=== PATIENT | female | born 1995 | race Caucasian/White ===

== ENCOUNTER 2018-01-10 23:18 | Emergency (ER) | payer OTHER ==
[~2018-01-10] VITALS: Ht 162.6 cm; Wt 102.0 kg
[2018-01-10 23:29] VITALS: Ht 162.6 cm; Wt 102.0 kg
[2018-01-11 00:38] VITALS: BP 111/61
== END 2018-01-11 00:38 | disposition home or self-care (01) ==
LOC: ED 23:18
DX: T81.4XXA Infection following a procedure, initial encounter (principal)

== ENCOUNTER 2018-04-18 14:32 | Emergency (ER) | payer OTHER ==
[~2018-04-18] VITALS: Ht 162.6 cm; Wt 104.5 kg
[2018-04-18 14:36] VITALS: BP 121/76; Ht 162.6 cm; Wt 104.5 kg
== END 2018-04-18 16:17 | disposition home or self-care (01) ==
LOC: ED 14:32
DX: S92.355A Nondisplaced fracture of fifth metatarsal bone, left foot, initial encounter for closed fracture (principal); Z90.49 Acquired absence of other specified parts of digestive tract; W18.42XA Slipping, tripping and stumbling without falling due to stepping into hole or opening, initial encounter; Y93.89 Activity, other specified; Y92.89 Other specified places as the place of occurrence of the external cause; Y99.8 Other external cause status
CPT/HCPCS: J1885; Q0092

== ENCOUNTER 2018-12-31 08:39 | Emergency (ER) | payer OTHER ==
[~2018-12-31] VITALS: Ht 162.6 cm; Wt 108.0 kg
[2018-12-31 08:49] VITALS: BP 115/59; Ht 162.6 cm; Wt 108.0 kg
== END 2018-12-31 10:41 | disposition home or self-care (01) ==
LOC: ED 08:39
DX: R51 Headache (principal); Z88.6 Allergy status to analgesic agent; Z88.5 Allergy status to narcotic agent
CPT/HCPCS: J0780; J1885

== ENCOUNTER 2019-03-01 08:53 | Emergency (ER) | payer OTHER ==
[~2019-03-01] VITALS: Ht 162.6 cm; Wt 106.6 kg
[2019-03-01 09:29] VITALS: Ht 162.6 cm; Wt 106.6 kg
[2019-03-01 12:18] VITALS: BP 142/92
== END 2019-03-01 12:31 | disposition home or self-care (01) ==
LOC: ED 08:53
DX: G43.909 Migraine, unspecified, not intractable, without status migrainosus (principal); H52.10 Myopia, unspecified eye; R11.10 Vomiting, unspecified; Z88.5 Allergy status to narcotic agent; Z88.8 Allergy status to other drugs, medicaments and biological substances
CPT/HCPCS: J3030

== ENCOUNTER 2020-02-17 12:40 | Emergency (ER) | payer OTHER ==
[~2020-02-17] VITALS: Ht 165.1 cm; Wt 114.0 kg
[2020-02-17 12:45] VITALS: Ht 165.1 cm; Wt 114.0 kg
[2020-02-17 15:05] VITALS: BP 117/62
== END 2020-02-17 14:58 | disposition home or self-care (01) ==
LOC: ED 12:40
DX: J02.9 Acute pharyngitis, unspecified (principal); E66.01 Morbid (severe) obesity due to excess calories; G43.909 Migraine, unspecified, not intractable, without status migrainosus; Z68.41 Body mass index [BMI] 40.0-44.9, adult; Z90.49 Acquired absence of other specified parts of digestive tract
CPT/HCPCS: Q0092